=== PATIENT | female | born 1990 | race Caucasian/White ===

== ENCOUNTER 2023-02-27 18:53 | Emergency (ER) | payer OTHER ==
[2023-02-27] MEDS ORDERED: KETOROLAC 30 MG/ML INJ ONE (19:18)
[2023-02-27] MEDS ORDERED: ONDANSETRON 4 MG/2 ML VIAL ONE (19:18)
[2023-02-27] MEDS ORDERED: NA CHLORIDE 0.9% 1,000 ML ONE (19:19)
[2023-02-27 20:00] LABS: Anion Gap 8.4 mEq/L (5.0-15.0); Bilirubin Total 0.4 mg/dL (0.2-1.0); Globulin 4.1 g/dL (2.3-3.5); Potassium 3.4 mEq/L (3.5-5.1); Protein, Total 8.1 g/dL (6.4-8.2)
[2023-02-27 20:05] LABS: Specific Gravity > 1.030 (1.005-1.030); Urine Bacteria <20 /HPF (<20); Urine Bilirubin NEGATIVE (Negative); Urine Blood 3+ (Negative); Urine Clarity Extremely Turbid (Clear); Urine Color Yellow (Yellow); Urine Culture Reflex Order REFLEXED; Urine Glucose NEGATIVE (Negative); Urine Ketones TRACE (Negative); Urine Microscopic Reflex YN ORDER UMIC; Urine Mucus 1+ /HPF (None Seen); Urine Nitrite NEGATIVE (Negative); Urine Protein 1+ (Negative); Urine RBC >50 /HPF (None Seen); Urine Urobilinogen 1+ (Normal); Urine WBC >50 /HPF (<5); Urine WBC Clump Occasional /HPF (None Seen); Urine Yeast (Budding) Few /HPF (None Seen)
[2023-02-27 20:06] LABS: Specific Gravity > 1.030 (1.005-1.030)
--- NOTE | 2023-02-27 21:15 | RAD REPORT ---
EXAM DESCRIPTION: CT - Stone Protocol - 02/27/2023 8:56 pm CLINICAL HISTORY: Abdominal pain. COMPARISON: None. TECHNIQUE: Computed axial tomography of the abdomen pelvis was obtained without oral or IV contrast. Lack of IV and oral contrast limits evaluation of solid organs, appendix, bowel, and vessels. Schwarz l reformatted images were obtained and reviewed. All CT scans are performed using dose optimization technique as appropriate and may include automated exposure control or mA/KV adjustment according to patient size. FINDINGS: Mild right hydronephrosis. 9 millimeter calculus right UPJ. Left renal calculus is not seen. Ureteral calculus is not noted. No bladder calculus. No left hydrone phrosis. The liver, spleen, pancreas and adrenals appear grossly normal There is no evidence of diverticulitis. The appendix appears normal No adnexal mass Small umbilical hernia IMPRESSION: 9 millimeter calculus right UPJ with mild right hydronephrosis
[2023-02-27 21:47] LABS: Absolute Eosinophils 0.2 K/uL (0-0.5); Absolute Lymphocytes (CBC) 3.1 K/uL (0.7-4.9); Absolute Monocytes 0.5 K/uL (0.1-1.3); Absolute Neutrophil 4.4 K/uL (1.8-8.0); Basophils % 0.5 % (0-1.3); Eosinophils % 1.9 % (0-4.4); Hematocrit 39.9 % (36.0-45.0); Hemoglobin 13.7 g/dL (12.0-15.0); Lymphocytes % 37.6 % (15.3-44.8); MCH 28.9 pg (27.0-35.0); MCHC 34.3 g/dL (32.0-36.0); MCV 84.3 fL (80-100); Monocytes % 6.1 % (3.3-12.3); Neutrophils % 53.9 % (41.7-73.7); Nucleated Red Blood Cells % 0.1 % (0-0); Platelets 288 thou/uL (152-406); RBC Red Blood Cell Count 4.73 M/uL (3.86-4.86); Red Cell Distribution Width 13.5 % (12.1-15.2)
[2023-02-27] MEDS ORDERED: CEFTRIAXONE 1000 MG/VIAL ONE (22:30)
[2023-02-27] MEDS ORDERED: MAGNESIUM SULFATE 1 gm IVPB 1 GM/100 ML BAG IV ONE (22:30)
[2023-02-27] MEDS ORDERED: MORPHINE 4 MG/ML SYR ONE (22:30)
[2023-02-27] MEDS ORDERED: TAMSULOSIN 0.4 MG SR CAP ONE (22:30)
[2023-02-27] MEDS ORDERED: FENTANYL CITR 100 MCG/2 ML ONE ×2 (22:38→23:32)
--- NOTE | 2023-02-27 23:18 | ER ---
Nurse's Notes [facility] Name: Sriram Johnston Age: 32 yrs Sex: Female : 1990 Arrival Date: 02/27/2023 Time: 18:53 Bed 11 Private MD: Diagnosis: Calculus of ureter-9mm right UPJ;Other hydronephrosis;UTI/ Urinary tract infection, site not specified Presentation: 02/27 18:59 Chief complaint: Patient states: SEVERE ABD PAIN ON RIGHT FLANK RADIATES TO ABDOMEN db STARTED 1 HOUR AGO. DENIES URINARY SYMPTOMS. Coronavirus screen: Vaccine status: Patient reports receiving the 2nd dose of the covid vaccine. Client denies travel out of the [place] in the last 14 days. At this time, the client does not indicate any symptoms associated with coronavirus-19. Ebola Screen: Patient negative for fever greater than or equal to 101.5 degrees Fahrenheit, and additional compatible Ebola Virus Disease symptoms Patient denies exposure to infectious person. Patient denies travel to an Ebola-affected area in the 21 days before illness onset. No symptoms or risks identified at this time. Initial Sepsis Screen: Does the patient meet any 2 criteria? No. Patient's initial sepsis screen is negative. Does the patient have a suspected source of infection? No. Patient's initial sepsis screen is negative. Risk Assessment: Do you want to hurt yourself or someone else? Patient reports no desire to harm self or others. Onset of symptoms was February 27, 2023. 18:59 Method Of Arrival: Ambulatory db 18:59 Acuity: CARL 3 db Triage Assessment: 19:02 General: Appears in no apparent distress. comfortable, Behavior is calm, cooperative. db Pain: Complains of pain in back and abdomen. Neuro: Level of Consciousness is awake, alert, obeys commands, Oriented to person, place, time, situation. Respiratory: Airway is patent Respiratory effort is even, unlabored, Respiratory pattern is regular, symmetrical. GI: Abdomen is flat, non-distended. 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 - Social history:: Smoking status: Patient reports the use of cigarette tobacco products, smokes one-half pack cigarettes per day. Screenin:37 [facility] ED Fall Risk Assessment (Adult) History of falling in the last 3 months, ap3 including since admission No falls in past 3 months (0 pts). Abuse screen: Denies threats or abuse. Nutritional screening: No deficits noted. Tuberculosis screening: No symptoms or risk factors identified. Assessment: 19:36 General: Appears uncomfortable, Behavior is calm, cooperative. Pain: Complains of pain ap3 in right lower quadrant Pain currently is 10 out of 10 on a pain scale. Also complains of nausea. Neuro: Level of Consciousness is awake, alert, obeys commands, Oriented to person, place, time, situation. Cardiovascular: Patient's skin is warm and dry. Respiratory: Airway is patent Respiratory effort is even, unlabored, Respiratory pattern is regular, symmetrical. GI: Reports lower abdominal pain, nausea. 22:50 Reassessment: Patient and/or family updated on plan of care and expected duration. Pain as6 level reassessed. Patient is alert, oriented x 3, equal unlabored respirations, skin warm/dry/pink. Vital Signs: 18:59 BP 143 / 105; Pulse 78; Resp 18; Temp 97.2; Pulse Ox 98% ; Weight 98.43 kg; Height 5 db ft. 4 in. ; Pain 10/10; 20:46 BP 156 / 91; Pulse 72; Pulse Ox 100% on R/A; ap3 22:49 BP 136 / 90; Pulse 88; Resp 16 S; Pulse Ox 100% on R/A; as6 23:55 BP 119 / 79; Pulse 63; Resp 16 S; Pulse Ox 99% on R/A; as6 18:59 Body Mass Index 37.25 (98.43 kg, 162.56 cm) db 18:59 Pain Scale: Adult db ED Course: 18:57 Patient arrived in ED. ae5 18:58 Mar[facility] Kilg[facility]C [facility]. kb 18:58 Oh James MD is Attending Physician. kb 19:02 Triage completed. db 19:02 Arm band placed on right wrist. Patient placed in waiting room. db 19:36 Batool Basurto, RN is Primary Nurse. ap3 19:36 Initial lab(s) drawn, by me, held in ED. Inserted saline lock: 22 gauge in left ap3 antecubital area, using aseptic technique. Blood collected. 19:37 Patient has correct armband on for positive identification. Bed in low position. Call ap3 light in reach. Side rails up X 1. 20:57 CT Stone Protocol In Process Unspecified. EDMS 22:[address] [facility] spoke with Ashley Beebe. vk 23:27 Patient accepted to [facility] [address] Nowak, \T\ 2322, per Ashley eBebe. vk 23:40 EMS accepted for transport with and ETA of 0000. vk 23:52 No provider procedures requiring assistance completed. Patient transferred, IV remains as6 in place. 23:53 Provided Education on: need for transfer . as6 Administered Medications: 19:36 Drug: NS 0.9% IV 1000 ml IV at 1 bolus Per protocol; 1000 mL bolus Route: IV; Rate: 1 ap3 bolus; Site: left antecubital; 20:47 Follow up: IV Status: Completed infusion; IV Intake: 1000ml ap3 19:36 Drug: TORadol - Ketorolac IVP 15 mg IVP once Route: IVP; Site: left antecubital; ap3 20:47 Follow up: Response: No adverse reaction; Pain is decreased ap3 19:36 Drug: Ondansetron IVP 4 mg IVP once; over 2 minutes Route: IVP; Site: left antecubital; ap3 20:47 Follow up: Response: Nausea is decreased ap3 22:34 Drug: Magnesium Sulfate IVPB 1 grams IVPB once over 1 hrs Route: IVPB; Infused Over: 1 as6 hrs; Site: left antecubital; 23:54 Follow up: Response: No adverse reaction; IV Status: Completed infusion; IV Intake: as6 100ml 22:37 Not Given (Patient Refused): morphineor iv 4 mg IVP once over 4 mins kb 22:49 Drug: Flomax PO 0.4 mg PO once Route: PO; as6 23:54 Follow up: Response: No adverse reaction as6 22:49 Drug: Rocephin IV 1 grams IV at calculated rate once; Given slow IV push per pharmacy as6 instructions Route: IV; Rate: calculated rate; Site: left antecubital; 23:54 Follow up: Response: No adverse reaction; IV Status: Completed infusion; IV Intake: [id number] 22:49 Drug: fentaNYL (PF) IVP 50 mcg IVP once Route: IVP; Site: left antecubital; as6 23:54 Follow up: Response: No adverse reaction as6 23:35 Drug: fentaNYL (PF) IVP 25 mcg IVP once Route: IVP; Site: left antecubital; as6 23:54 Follow up: Response: No adverse reaction as6 Medication: 23:52 VIS not applicable for this client. as6 Intake: 20:47 IV: 1000ml; Total: 1000ml. ap3 23:54 IV: 100ml; Total: 1100ml. as6 23:54 IV: 10ml; Total: 1110ml. as6 Outcome: 23:18 ER care complete, transfer ordered by . kb 23:53 Transferred by ground EMS to [facility], [facility], Transfer form completed. as6 23:53 Condition: stable 23:53 Instructed on the need for transfer, 02/28 00:10 Patient left the ED. as6 Signatures: Dispatcher [employer] EDMS Marlin Kilgore, NELA FELIPE-Batool Radford RN RN ap3 Anthony Arechiga RN RN as6 Pari Camacho, RN RN Zuly [place] vk Corrections: (The following items were deleted from the chart) 02/27 19:03 19:02 Social history: Smoking status: Patient reports the use of cigarette tobacco db products, denies chronic smoking, but will smoke occasionally, db 02/28 00:23 02/27 23:40 EMS accepted for Transport with an ETA \T\0000 vk vk
--- NOTE | 2023-02-27 23:18 | EDPHYS ---
Physician Documentation [facility] Name: Sriram Johnston Age: 32 yrs Sex: Female : 1990 Arrival Date: 02/27/2023 Time: 18:53 Bed 11 Private MD: ED Physician Oh James HPI: 02/27 19:04 This 32 yrs old Female presents to ER via Ambulatory with complaints of Abdominal Pain. 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 Denies n/v/d, urinary symptoms, fever. 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 - Social history:: Smoking status: Patient reports the use of cigarette tobacco products, smokes one-half pack cigarettes per day. ROS: 19:04 Constitutional: Negative for fever, chills, and weight loss, kb 19:04 Abdomen/GI: Positive for abdominal pain, 19:04 Back: Positive for flank pain, on the right, 19:04 All other systems are negative, Exam: 19:04 Constitutional: This is a well developed, well nourished patient who is awake, alert, kb and in no acute distress. Head/Face: Normocephalic, atraumatic. ENT: Moist Mucous membranes Cardiovascular: Regular rate Respiratory: Respirations even and unlabored. No increased work of breathing. Talking in full sentences Abdomen/GI: Soft, non-tender. No distention Skin: Warm, dry with normal turgor. Normal color. MS/ Extremity: Pulses equal, no cyanosis. Neurovascular intact. Full, normal range of motion. Neuro: Awake and alert, GCS 15, oriented to person, place, time, and situation. Moves all extremities. Normal gait. 19:04 Back: CVA tenderness, that is mild, is noted on the right, Vital Signs: 18:59 BP 143 / 105; Pulse 78; Resp 18; Temp 97.2; Pulse Ox 98% ; Weight 98.43 kg; Height 5 db ft. 4 in. ; Pain 10/10; 20:46 BP 156 / 91; Pulse 72; Pulse Ox 100% on R/A; ap3 22:49 BP 136 / 90; Pulse 88; Resp 16 S; Pulse Ox 100% on R/A; as6 23:55 BP 119 / 79; Pulse 63; Resp 16 S; Pulse Ox 99% on R/A; as6 18:59 Body Mass Index 37.25 (98.43 kg, 162.56 cm) db 18:59 Pain Scale: Adult db MDM: 18:58 Patient medically screened. kb 19:05 Differential diagnosis: appendicitis, Pyelonephritis, Ureterolithiasis, urinary tract kb infection. Data reviewed: vital signs, nurses notes. 22:01 Consideration of Admission/Observation Escalation of care including kb admission/observation considered. pt will be transferred due to lack of urologic services. Counseling: I had a detailed discussion with the patient and/or guardian regarding the historical points, exam findings, and any diagnostic results supporting the discharge/admit diagnosis, lab results, radiology results, the need to transfer to another facility, [facility] does not immediately have the required specialist. 23:05 Management of patient was discussed with the following: Dr Nettles, urologist accept pt kb for consult. . 23:21 Management of patient was discussed with the following: Dr Nowak, hospitalist at [facility] accepts pt for transfer. 02/27 19:01 Order name: CBC with Diff; Complete Time: 21:50 kb 02/27 19:01 Order name: CMP; Complete Time: 20:01 kb 02/27 19:01 Order name: Lipase; Complete Time: 20:01 kb 02/27 19:01 Order name: Test, Urine; Complete Time: 20:07 kb 02/27 19:01 Order name: Urinalysis w/ reflexes; Complete Time: 20:06 kb 02/27 20:08 Order name: Urine Culture EDMS 02/27 21:52 Order name: Lactate w/ 2H reflex if indic.; Complete Time: 23:15 kb 02/27 21:52 Order name: Blood Culture Adult (2) kb 02/27 19:01 Order name: CT Stone Protocol; Complete Time: 21:16 kb 02/27 19: Order name: IV Saline Lock; Complete Time: 19:36 kb 02/27 19: Order name: Labs collected and sent; Complete Time: 19:36 kb Administered Medications: 19:36 Drug: NS 0.9% IV 1000 ml IV at 1 bolus Per protocol; 1000 mL bolus Route: IV; Rate: 1 ap3 bolus; Site: left antecubital; 20:47 Follow up: IV Status: Completed infusion; IV Intake: 1000ml ap3 19:36 Drug: TORadol - Ketorolac IVP 15 mg IVP once Route: IVP; Site: left antecubital; ap3 20:47 Follow up: Response: No adverse reaction; Pain is decreased ap3 19:36 Drug: Ondansetron IVP 4 mg IVP once; over 2 minutes Route: IVP; Site: left antecubital; ap3 20:47 Follow up: Response: Nausea is decreased ap3 22:34 Drug: Magnesium Sulfate IVPB 1 grams IVPB once over 1 hrs Route: IVPB; Infused Over: 1 as6 hrs; Site: left antecubital; 23:54 Follow up: Response: No adverse reaction; IV Status: Completed infusion; IV Intake: as6 100ml 22:37 Not Given (Patient Refused): morphineor iv 4 mg IVP once over 4 mins kb 22:49 Drug: Flomax PO 0.4 mg PO once Route: PO; as6 23:54 Follow up: Response: No adverse reaction as6 22:49 Drug: Rocephin IV 1 grams IV at calculated rate once; Given slow IV push per pharmacy as6 instructions Route: IV; Rate: calculated rate; Site: left antecubital; 23:54 Follow up: Response: No adverse reaction; IV Status: Completed infusion; IV Intake: [id number] 22:49 Drug: fentaNYL (PF) IVP 50 mcg IVP once Route: IVP; Site: left antecubital; as6 23:54 Follow up: Response: No adverse reaction as6 23:35 Drug: fentaNYL (PF) IVP 25 mcg IVP once Route: IVP; Site: left antecubital; as6 23:54 Follow up: Response: No adverse reaction as6 Disposition Summary: 02/27/23 23:18 Transfer Ordered Notes: Transfer Location: [facility] kb Reason: Higher level of care kb Condition: Stable kb Problem: new kb Symptoms: are unchanged kb Accepting Physician: Dr Nowak(02/28/23 00:10) as6 Diagnosis - Calculus of ureter - 9mm right UPJ kb - Other hydronephrosis kb - UTI/ Urinary tract infection, site not specified kb Forms: - Medication Reconciliation Form kb - SBAR form kb Signatures: Dispatcher [employer] EDMarlin Jarrell, APPLICATION CHEMIST-C MATTEO-Batool Radford RN RN ap3 Anthony Arechiga RN RN as6 Pari Camacho RN RN db Corrections: (The following items were deleted from the chart) 19:03 19:02 Social history: Smoking status: Patient reports the use of cigarette tobacco db products, denies chronic smoking, but will smoke occasionally, db 23:22 23:18 Dr lui poe 02/28 00:10 02/27 23:22 Dr Nowak kb as6
[2023-02-28 07:29] VITALS: BP 119/79; TEMP 97.2; O2SAT 99
== END 2023-02-28 00:10 | disposition short-term general hospital (02) ==
LOC: ER 18:53
DX: N13.2 Hydronephrosis with renal and ureteral calculous obstruction (principal); N39.0 Urinary tract infection, site not specified; F17.210 Nicotine dependence, cigarettes, uncomplicated
CPT/HCPCS: 96365; 96361; 87040 ×2; 87088; 85025; 81001; 87086; 36415; 81025; 83605; 87077; 87186; 83690; 80053; 76377; 74176; 96375; 99285; J3475; J3010 ×2; J2405; J7030; J0696